=== PATIENT | female | born 1980 | race Caucasian/White ===

== ENCOUNTER 2017-09-24 07:12 | Emergency (ER) | payer OTHER ==
[~2017-09-24] VITALS: Ht 165.1 cm; Wt 64.0 kg
--- NOTE | 2017-09-24 07:35 | ED GENERAL ADULT ---
History of Present Illness General Chief Complaint: Female Urogenital Problems Stated Complaint: "HEAVY PERIOD BLEEDING W/ MINOR PAIN" Source: patient Exam Limitations: no limitations Vital Signs & Intake/Output Vital Signs & Intake/Output Vital Signs Date Time Temp Pulse Resp B/P B/P Pulse O2 O2 Flow FiO2 Mean Ox Delivery Rate 09/24 1621 98.4 76 18 102/88 98 Room Air 09/24 1521 98.9 87 18 99/63 100 09/24 1321 98.1 64 18 100/74 98 Room Air 09/24 1300 97.1 62 18 106/72 98 Room Air 09/24 1204 98.2 96 18 106/72 98 Room Air 09/24 0955 97.7 94 18 112/71 100 Room Air 09/24 0933 97.1 104 18 118/60 100 Room Air 09/24 0721 98.3 111 20 112/79 100 Room Air Allergies Coded Allergies: No Known Allergies (09/24/17) Reconcile Medications Tranexamic Acid (Lysteda) 650 MG TABLET 2 TAB PO TID MENORRHAGIA during menses Triage Note: PT STATES HER PERIOD STARTED ON 09/08/17 AND IT STARTED GETTING VERY HEAVY ON 09/11/17. STATES SHE WENT TO PMD ON 09/18/17 AND ON THE . STATES IT HAS GOTTEN HEAVIER SINCE. STATES IF SHE IS WALKING AROUND SHE GOES THROUGH A PAD AN HOUR Triage Nurses Notes Reviewed? yes Onset: Abrupt Duration: day(s): Timing: recent history : No Patient currently breastfeeds: No HPI: 09/24/17 8 AM 37-year-old female presents to the emergency department for ongoing vaginal bleeding. The patient states she's been bleeding for approximately 3 weeks. She saw her [employer] doctor and had a pelvic exam and an ultrasound. She was told that she has a cervical polyp and a fibroid. Past History Travel History Traveled to [place] past 21 day No Medical History Any Pertinent Medical History? see below for history Blood Disorders: anemia Surgical History Surgical History: none Psychosocial History What is your primary language Ghanaian Tobacco Use: Never used ETOH Use: occasional use Illicit Drug Use: denies illicit drug use Family History Hx Contributory? No Review of Systems Review of Systems Constitutional: Denies: fever. EENTM: Reports: no symptoms (no fever). Respiratory: Reports: short of breath. Cardiovascular: Reports: no symptoms (short of breath). GI: Reports: no symptoms (any abdominal pain). Denies: abdominal pain. Genitourinary: Reports: no symptoms. Musculoskeletal: Reports: no symptoms. Skin: Reports: no symptoms. Neurological/Psychological: Reports: no symptoms. Hematologic/Endocrine: Reports: see HPI. Immunologic/Allergic: Reports: no symptoms. Physical Exam Physical Exam General Appearance: well developed/nourished, awake, anxious Head: atraumatic, normal appearance Eyes: Bilateral: normal appearance, PERRL, EOMI. Ears, Nose, Throat: normal pharynx, normal ENT inspection, hearing grossly normal Neck: normal inspection, supple, full range of motion Respiratory: normal breath sounds, chest non-tender, no respiratory distress Cardiovascular: tachycardic Peripheral Pulses: 3+ radial (R), 3+ radial (L) Gastrointestinal: soft, non-tender Back: normal range of motion Extremities: no edema Neurologic/Psych: no motor/sensory deficits, awake, alert, oriented x 3 Skin: pallor Comments: Speculum exam reveals significant active bleeding.( Core Measures ACS in differential dx? No CVA/TIA Diagnosis: No Sepsis Present: No Sepsis Focused Exam Completed? No Progress Differential Diagnoses I considered the following diagnoses in my evaluation of the patient: [Vaginal bleeding, coagulopathy, uterine fibroid, cervical polyp,] Plan of Care: Orders Procedure Date/time Status BLOOD PRODUCT PICKUP 09/24 1217 Active BLOOD PRODUCT PICKUP 09/24 0924 Active LEUKOCYTE POOR (PACKED CELLS) 09/24 0836 Active D-DIMER 09/24 0805 Complete HUMAN BETA HCG SCREEN 09/24 0758 Complete COMPREHENSIVE METABOLIC PANEL 09/24 0758 Complete CBC WITHOUT DIFFERENTIAL 09/24 0758 Complete TYPE & SCREEN (NOT X-MATCH) 09/24 0758 Complete Current Medications Sig/Alverto Start time Last Medication Dose Stop Time Status Admin Tranexamic Acid 1,000 MG ONCE ONE 09/24 1045 CAN (Tranexamic Acid) 09/24 1046 Tranexamic Acid 650 MG ONCE ONE 09/24 1015 CAN (Tranexamic Acid) 09/24 1016 Laboratory Tests 09/24/ 0803: Anion Gap 11, Estimated GFR > 60, BUN/Creatinine Ratio 17.1, Glucose 99, Calcium 8.4, Total Bilirubin 0.2, AST 20, ALT 31, Alkaline Phosphatase 56, Total Protein 5.7 L, Albumin 3.3 L, Globulin 2.4, Albumin/Globulin Ratio 1.4, Total Beta HCG NEGATIVE, D-Dimer High Sensitivty < 200, CBC w Diff NO MAN DIFF REQ, RBC 2.19 L , MCV 85.3, MCH 28.7, MCHC 33.6, RDW 16.2 H, MPV 8.6, Gran % 64.8, Lymphocytes % 24.6, Monocytes % 8.7, Eosinophils % 1.5, Basophils % 0.4, Absolute Granulocytes 3.9, Absolute Lymphocytes 1.5, Absolute Monocytes 0.5, Absolute Eosinophils 0.1, Absolute Basophils 0 Initial ED EKG: none Departure Departure Disposition: STILL A PATIENT Condition: Stable Clinical Impression Primary Impression: Vaginal bleeding Referrals: Swapna ULRICH,Neville Anderson (PCP/Family) Departure Forms: Customer Survey General Discharge Information Prescriptions: Current Visit Scripts Tranexamic Acid (Lysteda) 2 TAB PO TID #24 TAB during menses Comments 09/24/17 10:17 AM The patient was given a blood transfusion. I consulted with Dr. Nix. He recommended starting Lysteda. I also spoke with the patient's [employer]ATING AND [employer]CH[employer]IC physician on- call for Dr. Malin; who informed me she recently had an ultrasound that revealed a small cervical polyp and a small fibroid and that her recent hemoglobin was 10. Dr. Nix will be down to evaluate the patient. The patient received 2 units of blood. Her symptoms improved. No further bleeding. She was seen and evaluated by Dr. Nix. The patient was treated with by mouth Lysteda. She will follow-up with her [employer] this week. Critical Care Note Critical Care Note Critical Care Time: non-applicable
[2017-09-24 08:17] LABS: ABSOLUTE BASOPHIL COUNT 0 /CUMM (0.0-0.2); ABSOLUTE EOSINOPHIL COUNT 0.1 /CUMM (0.0-0.7); ABSOLUTE GRANULOCYTE CT 3.9 /CUMM (1.4-6.5); ABSOLUTE LYMPH COUNT 1.5 /CUMM (1.2-3.4); ABSOLUTE MONOCYTE COUNT 0.5 /CUMM (0.10-0.60); BASOPHIL % 0.4 % (0.0-2.0); MEAN CORPUSCULAR HGB CONC 33.6 G/DL (33.0-37.0); RED BLOOD CELL CT 2.19 /CUMM (4.20-5.40)
[2017-09-24 08:23] LABS: EOSINOPHIL % 1.5 % (0-5); GRANULOCYTE % 64.8 % (42.2-75.2); MEAN CORPUSCULAR HGB 28.7 PG (27.0-31.0); MEAN CORPUSCULAR VOLUME 85.3 FL (81.0-99.0); MEAN PLATELET VOLUME 8.6 FL (7.4-10.4); PLATELET COUNT 285 /CUMM (130-400); RBC DISTRIBUTION WIDTH 16.2 % (11.5-14.5)
[2017-09-24 08:26] LABS: HEMATOCRIT 18.6 % (37-47)
--- NOTE | 2017-09-24 11:13 | Cons- OBGYN ---
General Information and HPI Consulting Request Date of Consult: 09/24/17 Requested By: DR. Vance Reason for Consult: vaginal bleeding and anemia Source of Information: patient, old records Exam Limitations: no limitations History of Present Illness: pt has been bleeding from presumed fibroid uterus for weeks sees a ONLINE FACILITATOR WHO IS FOLLOWING HER. bleeding increased this weekend now has dizziness lightheadedness. Infertility pt awaiting referal Allergies/Medications Allergies: Coded Allergies: No Known Allergies (09/24/17) Home Med List: No Known Home Medications Current Medications: Current Medications Sig/Alverto Start time Last Medication Dose Route Stop Time Status Admin Sodium Chloride 1,000 ML BOLUS ONE 09/24 0815 DC 09/24 IV 09/24 1014 0839 Tranexamic Acid 1,000 MG ONCE ONE 09/24 1045 CAN IV 09/24 1046 Tranexamic Acid 650 MG ONCE ONE 09/24 1015 CAN IV 09/24 1016 Tranexamic Acid 1,000 MG ONCE 09/24 0000 DC Sodium Chloride 100 ML IV 09/24 2359 Past History Medical History Neurological: NONE EENT: NONE Cardiovascular: NONE Respiratory: NONE Gastrointestinal: NONE Hepatic: NONE Renal: NONE Endocrine: NONE Blood Disorders: anemia ONLINE FACILITATOR/Reproductive: fibroid Surgical History Pertinent Surgical History: 1 Psychosocial History ETOH Use: occasional use Illicit Drug Use: denies illicit drug use Review of Systems Review of Systems Constitutional: Denies: weakness. EENTM: Denies: blurred vision, double vision, visual changes. Respiratory: Reports: short of breath. GI: Denies: abdominal pain, diarrhea, melena, nausea, vomiting. Genitourinary: Denies: pain. Hematologic/Endocrine: Reports: bleeding. Denies: bruising. Exam & Diagnostic Data Vital Signs and I&O Vital Signs Date Time Temp Pulse Resp B/P B/P Pulse O2 O2 Flow FiO2 Mean Ox Delivery Rate 09/24 0955 97.7 94 18 112/71 100 Room Air 09/24 0933 97.1 104 18 118/60 100 Room Air 09/24 0721 98.3 111 20 112/79 100 Room Air Intake & Output 09/24 1600 09/24 0800 09/24 0000 09/23 1600 09/23 0800 09/23 0000 Intake Total 0 Output Total Balance 0 Intake, Oral 0 Patient 141 lb Weight Weight Reported by Patient Measurement Method Physical Exam General Appearance: well developed/nourished, alert, awake Head: normal appearance Eyes: Bilateral: normal appearance, pale conjunctivae. Ears, Nose, Throat: normal pharynx Neck: normal inspection Gastrointestinal: soft, non-tender Extremities: no edema Neurologic/Psych: awake, alert, oriented x 3 Skin: pallor Pelvic: scant blood in vault, cervix no lesions, uterus with posterior fibroid, nontender, adnexa normal Last 24 Hours of Labs: Laboratory Tests 09/24 0803 Chemistry Sodium (137 - 145 mmol/L) 139 Potassium (3.5 - 5.1 mmol/L) 4.0 Chloride (98 - 107 mmol/L) 107 Carbon Dioxide (22 - 30 mmol/L) 21 L Anion Gap (5 - 16) 11 BUN (7 - 17 mg/dL) 12 Creatinine (0.5 - 1.0 mg/dL) 0.7 Estimated GFR (>60 ml/min) > 60 BUN/Creatinine Ratio (7 - 25 %) 17.1 Glucose (65 - 99 mg/dL) 99 Calcium (8.4 - 10.2 mg/dL) 8.4 Total Bilirubin (0.2 - 1.3 mg/dL) 0.2 AST (14 - 36 U/L) 20 ALT (9 - 52 U/L) 31 Alkaline Phosphatase (<127 U/L) 56 Total Protein (6.3 - 8.2 g/dL) 5.7 L Albumin (3.5 - 5.0 g/dL) 3.3 L Globulin (1.9 - 4.2 gm/dL) 2.4 Albumin/Globulin Ratio (1.1 - 2.2 %) 1.4 Total Beta HCG (NEGATIVE) NEGATIVE Coagulation D-Dimer High Sensitivty (0 - 243 ng/ml) < 200 Hematology CBC w Diff NO MAN DIFF REQ WBC (4.8 - 10.8 /CUMM) 6.0 RBC (4.20 - 5.40 /CUMM) 2.19 L Hgb (12.0 - 16.0 G/DL) 6.3 *L Hct (37 - 47 %) 18.6 *L MCV (81.0 - 99.0 FL) 85.3 MCH (27.0 - 31.0 PG) 28.7 MCHC (33.0 - 37.0 G/DL) 33.6 RDW (11.5 - 14.5 %) 16.2 H Plt Count (130 - 400 /CUMM) 285 MPV (7.4 - 10.4 FL) 8.6 Gran % (42.2 - 75.2 %) 64.8 Lymphocytes % (20.5 - 51.1 %) 24.6 Monocytes % (1.7 - 9.3 %) 8.7 Eosinophils % (0 - 5 %) 1.5 Basophils % (0.0 - 2.0 %) 0.4 Absolute Granulocytes (1.4 - 6.5 /CUMM) 3.9 Absolute Lymphocytes (1.2 - 3.4 /CUMM) 1.5 Absolute Monocytes (0.10 - 0.60 /CUMM) 0.5 Absolute Eosinophils (0.0 - 0.7 /CUMM) 0.1 Absolute Basophils (0.0 - 0.2 /CUMM) 0 Assessment/Plan Assessment/Plan vaginal bleeding from leiomyoma responding to Prbc transfusion. plan 2 units PRBC d/c on Lysteda 650mg two tabs PO TID for 4 days and f/u with PMD Problem List: 1. Vaginal bleeding Consult Acknowledgment - Thank you for your consult request.
[2017-09-24 16:21] VITALS: BP 102/88
[2017-09-24] MEDS ORDERED: LYSTEDA650 M1 PO (16:21)
== END 2017-09-24 16:35 ==
LOC: ERH 07:12
PROVIDERS: Emergency Medicine
DX: N93.9 Abnormal uterine and vaginal bleeding, unspecified (principal)
CPT/HCPCS: 86920; 99291; P9016